=== PATIENT | female | born 1960 | race Two or more races ===

== ENCOUNTER 2016-12-09 16:58 | Emergency (ER) | payer MEDICAID, OTHER ==
[~2016-12-09] VITALS: Ht 152.4 cm; Wt 68.0 kg
[~2016-12-09 16:58] MED LIST: ALBUTEROL SULF8.5 GM INH; AZITHROMYCIN250 MG ORAL; MACROBID100 MG ORAL; MEDROL DOSEPAK4 MG ORAL; PHENERGAN6.25 MG/5 ORAL; PREDNISONE20 MG ORAL; SERTRALINE HCL50 MG ORAL; XANAX0.25 MG ORAL
[2016-12-09] MEDS ORDERED: Ipratropium 0.02% Inh Soln 2.5ml UD ONE (18:07)
[2016-12-09] MEDS ORDERED: Albuterol ud Inhalation ONE (18:07)
[2016-12-09] MEDS ORDERED: Ipratropium 0.02% Inh Soln 2.5ml UD HHN ONE (18:15)
[2016-12-09] MEDS ORDERED: Albuterol ud Inhalation HHN ONE (18:15)
[2016-12-09] MEDS ORDERED: PredniSONE 20mg tab ORAL ONE (18:15)
[2016-12-09 18:19] VITALS: BP 128/72
[2016-12-09] MEDS ORDERED: PREDNISONE20 MG ORAL (18:29)
[2016-12-09] MEDS ORDERED: ALBUTEROL SULF8.5 GM INH (18:29)
[2016-12-09 21:43] VITALS: BP 132/62
--- NOTE | 2016-12-13 00:28 | Emergency Room Report ---
History of Present Illness General Chief Complaint: Dyspnea/Respdistress Source: Patient Present Illness HPI The patient is a 56-year-old female who presented after increased difficulty breathing. Patient prior history of asthma and had gradual onset of worsening symptoms. Patient reported having nonproductive cough. She had been any fever. She has not been vomiting or having diarrhea. She denied any leg pain or swelling. The patient had any changes with exertion. Allergies: Coded Allergies: No Known Allergies (Unverified , 02/04/15) Patient History Past Medical History: see triage record Now: No Reviewed Nursing Documentation: PMH: Agreed, PSxH: Agreed Nursing Documentation-PMH Hx Asthma: Yes Review of Systems All Other Systems: negative except mentioned in HPI Physical Exam Vital Signs Date Time Temp Pulse Resp B/P Pulse Ox O2 Delivery O2 Flow Rate FiO2 12/09/16 17:50 98.2 76 17 135/80 97 12/09/16 18:05 Room Air 96 Sp02 EP Interpretation: reviewed, normal General Appearance: normal inspection, well appearing, no apparent distress, alert, GCS 15 Head: atraumatic ENT: normal ENT inspection, hearing grossly normal, normal voice Neck: normal inspection, full range of motion, supple, no bony tend Respiratory: normal inspection, no respiratory distress, no retraction, wheezing Cardiovascular #1: regular rate, rhythm, no edema Gastrointestinal: normal inspection, normal bowel sounds, non tender, soft, no guarding, no hernia Genitourinary: no CVA tenderness Musculoskeletal: normal inspection, back normal, normal range of motion Neurologic: normal inspection, alert, responsive, speech normal Psychiatric: normal inspection, judgement/insight normal, mood/affect normal Skin: normal inspection, normal color, no rash Medical Decision Making Diagnostic Impression: Primary Impression: Asthma exacerbation ER Course Patient presented for shortness of breath.Differential included but was not limited to anemia, pneumonia, pneumothorax, myocardial infarction, pericardial effusion, congestive heart failure, acidosis. Because of complexity of patient' s case laboratory testing and imaging studies were ordered.Patient was noted to have evidence of asthma exacerbation. The patient was given breathing treatments.The patient improvement in her respiratory status. Patient stated she felt better want to go home. The patient shows exam and history consistent with an asthma exacerbation. The patient is advised to follow up with primary care doctor in 1-2 days. Patient is advised to return if any worsening condition or if any changes in status that are concerning. Last Vital Signs Date Time Temp Pulse Resp B/P Pulse Ox O2 Delivery O2 Flow Rate FiO2 12/09/16 21:43 98.6 86 19 132/62 100 Room Air 12/09/16 18:23 21 Status: improved Disposition: HOME, SELF-CARE Condition: Stable Scripts Albuterol Sulfate* (ALBUTEROL SULFATE MDI*) 8.5 Gm Hfa.aer.ad 2 PUFF INH Q6H, #1 EA 0 Refills Prov: Jovanny Somers 12/09/16 Prednisone* (PREDNISONE*) 20 Mg Tablet 40 MG ORAL DAILY, #10 TAB 0 Refills Prov: Jovanny Somers 12/09/16 Referrals: [facility]ERR[facility] (PCP) Patient Instructions: Asthma, Adult Jovanny Somers Dec 13, 2016 00:28
== END 2016-12-09 21:45 | disposition home or self-care (01) ==
LOC: EMR 18:10
DX: J45.901 Unspecified asthma with (acute) exacerbation (principal); R05 Cough
CPT/HCPCS: 94640; 94664; 99283

== ENCOUNTER 2020-12-27 18:59 | Emergency (ER) | payer MEDICAID, OTHER ==
[~2020-12-27] VITALS: Ht 152.4 cm; Wt 68.0 kg
[~2020-12-27 18:59] MED LIST changes: +PROMETHAZI6.25 MG/1 ORAL; +VENTOLIN HFA18 GM INH; +ZITHROMAX250 MG ORAL
[2020-12-27 19:10] VITALS: BP 141/75
--- NOTE | 2020-12-27 19:22 | NUR ---
ED Nurse Note: Pt walked into ED from home c/o painful urination with small amounts of blood onset today. Denies fever, denies chills, denies n/v/d.
--- NOTE | 2020-12-27 19:28 | Emergency Room Report ---
History of Present Illness General Chief Complaint: Female Urogenital Problems Source: Patient Present Illness HPI Patient presents with 2 to 3 days of dysuria. She started drinking increased amounts of water and the pain was somewhat better with that. Today she started passing little bit of blood and felt she needed to come in. She has a slight amount of flank pain on the left-hand side but denies any fevers or chills. She denies any nausea, vomiting or diarrhea. She says she has had urinary tract infections in the past. Patient denies exposure to Covid positive contacts. No sore throat, chest pain, palpitations, nausea, vomiting, diarrhea, abdominal pain, shortness of breath, joint pain, rashes, depression, anxiety, visual changes, dizziness, headache. 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 COVID-19 Screening: Negative COVID-19 COVID-19 Testing Source: nasal Patient History Past Medical History: see triage record Social History: Denies: smoking, alcohol use, drug use Social History Narrative Born in [place], lives with her sons Reviewed Nursing Documentation: PMH: Agreed; PSxH: Agreed Nursing Documentation-PMH Past Medical History: No History, Except For Hx Asthma: Yes Review of Systems All Other Systems: negative except mentioned in HPI Physical Exam Vital Signs Date Time Temp Pulse Resp B/P (MAP) Pulse Ox O2 Delivery O2 Flow Rate FiO2 12/27/20 19:15 99.0 94 17 138/87 (104) 98 Room Air Sp02 EP Interpretation: reviewed, normal General Appearance: well appearing, no apparent distress, GCS 15 Head: normocephalic Eyes: right eye other - Cataract; bilateral eye PERRL ENT: other - Wearing a mask Neck: full range of motion, supple Respiratory: normal inspection Cardiovascular #1: regular rate, rhythm Cardiovascular #2: 2+ radial (R) Gastrointestinal: normal inspection, overweight Genitourinary: no CVA tenderness Musculoskeletal: gait/station normal Neurologic: alert, grossly normal Psychiatric: mood/affect normal Skin: normal color, no rash, warm/dry, other - Fully dressed Medical Decision Making Diagnostic Impression: Primary Impression: Urinary tract infection Qualified Codes: N30.01 - Acute cystitis with hematuria ER Course Patient presents with dysuria and hematuria. Differential includes pyelonephritis, urinary tract infection, dysfunctional uterine bleeding. Her history is consistent with hemorrhagic cystitis. Urinalysis is indicated. Patient declined pain medication at this time. Urinalysis with red blood cells and white blood cells. Patient given Pyridium and Macrobid. Discussed findings with patient and treatment plan. Patient stable for outpatient observation and treatment. Laboratory Tests Test 12/27/20 19:30 Urine Color Red Urine Appearance Slightly cloudy Urine pH 5 (4.5-8.0) Urine Specific [place] 1.010 (1.005-1.035) Urine Protein 3+ (NEGATIVE) H Urine Glucose (UA) Negative (NEGATIVE) Urine Ketones 1+ (NEGATIVE) H Urine Blood 5+ (NEGATIVE) H Urine Nitrite Negative (NEGATIVE) Urine Bilirubin Negative (NEGATIVE) Urine Urobilinogen Normal MG/DL (0.0-1.0) Urine Leukocyte Esterase 3+ (NEGATIVE) H Urine RBC Tntc /HPF (0 - 2) H Urine WBC Tntc /HPF (0 - 2) H Urine Squamous Epithelial Cells Few /LPF (NONE/OCC) Urine Bacteria Many /HPF (NONE) H Last Vital Signs Date Time Temp Pulse Resp B/P (MAP) Pulse Ox O2 Delivery O2 Flow Rate FiO2 12/27/20 20:43 98.8 70 17 141/82 98 Room Air Status: improved Disposition: HOME, SELF-CARE Condition: Improved Scripts Phenazopyridine Hcl* (PYRIDIUM*) 200 Mg Tablet 200 MG ORAL THREE TIMES A DAY, #9 TAB 0 Refills Prov: Kirt De Paz MD 12/27/20 Nitrofurantoin Monohyd/M-Cryst* (MACROBID 100 MG*) 100 Mg Capsule 100 MG ORAL EVERY 12 HOURS, #14 CAP Prov: Kirt De Paz MD 12/27/20 Kirt De Paz MD Dec 27, 2020 19:28
--- NOTE | 2020-12-27 19:30 | NUR ---
ED Nurse Note: urine sent to lab
[2020-12-27 20:17] LABS: APPEARANCE,URINE SLIGHTLY CLOUDY; BILIRUBIN, URINE NEGATIVE (NEGATIVE); COLOR,URINE RED; GLUCOSE, URINE (UA) NEGATIVE (NEGATIVE); KETONES,URINE 1+ (NEGATIVE); LEUKOCYTE ESTERASE ,URINE 3+ (NEGATIVE); NITRITE,URINE NEGATIVE (NEGATIVE); PH,URINE 5 (4.5-8.0); PROTEIN,URINE 3+ (NEGATIVE); UROBILINOGEN,URINE NORMAL MG/DL (0.0-1.0)
[2020-12-27] MEDS ORDERED: NITROFURANTOIN100 M2 ORAL (20:36)
[2020-12-27] MEDS ORDERED: PHENAZOPYRIDIN200 MG ORAL (20:36)
[2020-12-27 20:43] VITALS: BP 141/82
--- NOTE | 2020-12-27 20:43 | NUR ---
ER DISCHARGE NOTE: Patient is cleared to be discharged per ERMD, pt is aox4, on room air, with stable vital signs. pt was given night dose of ABX, dc paperwork and paper prescription instructions, pt was able to verbalize understanding, pt id band removed. pt is able to ambulate with steady gait. pt took all belongings.
[2020-12-27] MEDS ORDERED: Phenazopyridine 200mg tab ORAL ONE (20:45)
== END 2020-12-27 20:43 | disposition home or self-care (01) ==
LOC: EMR 19:46
DX: N30.01 Acute cystitis with hematuria (principal); J45.909 Unspecified asthma, uncomplicated; Z79.899 Other long term (current) drug therapy
CPT/HCPCS: 81003; 87086; Z7502; 99283